=== PATIENT | female | born 1990 | race Caucasian/White ===

== ENCOUNTER 2017-12-05 20:02 | Emergency (ER) | payer MEDICAID ==
--- NOTE | 2017-12-05 20:45 | EDPHY ---
H & P Stated Complaint: heavy vag bleed Time Seen by Provider: 12/05/17 20:16 HPI/ROS: Chief Complaint: Vaginal bleeding HPI: 27-year-old is presenting with heavy vaginal bleeding for the last 2 days. Patient states her last normal menstrual cycle was about a month ago but she does not keep track. Does not believe she is because her had a vasectomy about 6 weeks ago. Has had increasing abnormal vaginal bleeding over the course today. Patient states she is soaking a heavy tampon with a pad every 45 min to an hour over the course of the day. No lightheadedness or fainting. Does not have a history of heavy vaginal bleeding in the past. Is complaining of some left lower pelvic pain. Does not believe she is . This does not feel like her normal menses. ROS: 10 point Review of Systems is negative except as noted in the HPI. PMH: Denies Social History: [No] smoking, [no] alcohol, [ no recreational drug use] Family History: [non-contributory] Physical Exam: Gen: [Awake], [Alert], [No Distress] HEENT: [ ] [Nose: no rhinorrhea] Eyes: [PERRLA], [EOMI] Mouth: [Moist mucosa] [] Neck: [Supple], [no JVD] Chest: [nontender], [lungs clear to auscultation] Heart: [S1, S2 normal], [no murmur] Abd: [Soft], moderate left adnexal tenderness with guarding Back: [no CVA tenderness], [no] midline tenderness [] Ext: [no] edema, [non-tender] Skin: [no rash] Neuro: [CN II-XII intact], [Sensation grossly intact], Strength [5]/5 in [ bilateral] [upper and] [lower] extremities - Personal History LMP (Females 10-55): Now Current Tetanus/Diphtheria Vaccine: Unsure Current Tetanus Diphtheria and Acellular Pertussis (TDAP): Unsure - Medical/Surgical History Hx Asthma: No Hx Chronic Respiratory Disease: No Hx Diabetes: No Hx Cardiac Disease: No Hx Renal Disease: No Hx Cirrhosis: No Hx Alcoholism: No Hx HIV/AIDS: No Hx Splenectomy or Spleen Trauma: No Other PMH: c secton. - Social History Smoking Status: Never smoked Constitutional: Initial Vital Signs Temperature (C) 37 C 12/05/17 20:04 Heart Rate 93 12/05/17 20:04 Respiratory Rate 18 12/05/17 20:04 Blood Pressure 144/94 H 12/05/17 20:04 O2 Sat (%) 99 12/05/17 20:04 O2 Delivery Mode Room Air Allergies/Adverse Reactions: No Known Allergies Allergy (Unverified 12/05/17 20:04) Home Medications: Medication Instructions Recorded medroxyPROGESTERone [Provera 10 mg 10 mg PO DAILY #9 tab 12/05/17 (*)] Medical Decision Making ED Course/Re-evaluation: The patient's blood counts are normal. She is not . Symptoms consistent with dysfunctional uterine bleeding. She is normal sinus. Will start her on Provera. Have her follow up with OBGYN as an outpatient. - Data Points Laboratory Results: Laboratory Results 12/05/17 20:45 12/05/17 20:45 12/05/17 12/05/17 12/05/17 20:45 20:45 20:45 WBC 6.73 10^3/uL 10^3/uL (3.80-9.50) RBC 5.06 10^6/uL 10^6/uL (4.18-5.33) Hgb 12.1 g/dL L g/dL (12.6-16.3) Hct 37.5 % L % (38.0-47.0) MCV 74.1 fL L fL (81.5-99.8) MCH 23.9 pg L pg (27.9-34.1) MCHC 32.3 g/dL L g/dL (32.4-36.7) RDW 17.7 % H % (11.5-15.2) Plt Count 229 10^3/uL 10^3/uL (150-400) MPV 12.0 fL H fL (8.7-11.7) Neut % (Auto) 47.1 % % (39.3-74.2) Lymph % (Auto) 40.4 % % (15.0-45.0) [place] % (Auto) 9.1 % % (4.5-13.0) Eos % (Auto) 2.4 % % (0.6-7.6) Baso % (Auto) 0.9 % % (0.3-1.7) Nucleat RBC Rel Count 0.0 % % (0.0-0.2) Absolute Neuts (auto) 3.17 10^3/uL 10^3/uL (1.70-6.50) Absolute Lymphs (auto) 2.72 10^3/uL 10^3/uL (1.00-3.00) Absolute Monos (auto) 0.61 10^3/uL 10^3/uL (0.30-0.80) Absolute Eos (auto) 0.16 10^3/uL 10^3/uL (0.03-0.40) Absolute Basos (auto) 0.06 10^3/uL 10^3/uL (0.02-0.10) Absolute Nucleated RBC 0.00 10^3/uL 10^3/uL (0-0.01) Immature Gran % 0.1 % % (0.0-1.1) Immature Gran # 0.01 10^3/uL 10^3/uL (0.00-0.10) Sodium 142 mEq/L mEq/L (135-145) Potassium 3.9 mEq/L mEq/L (3.3-5.0) Chloride 105 mEq/L mEq/L (97-110) Carbon Dioxide 25 mEq/l mEq/l (22-31) Anion Gap 12 mEq/L mEq/L (8-16) BUN 12 mg/dL mg/dL (7-23) Creatinine 0.8 mg/dL mg/dL (0.6-1.0) Estimated GFR > 60 Glucose 69 mg/dL L mg/dL (70-100) Calcium 9.7 mg/dL mg/dL (8.5-10.4) Beta HCG, Qual NEGATIVE Departure - Departure Disposition: Home, Routine, Self-Care Clinical Impression: Abnormal vaginal bleeding Condition: Good Instructions: Dysfunctional Uterine Bleeding (ED) Additional Instructions: Take her full 10 day course of Provera. Follow up with OBGYN in 1-2 weeks for further evaluation. Return to the emergency department for increasing pain, lightheadedness, fainting, persistent heavy bleeding, or any other concerns. Referrals: NONE *PRIMARY CARE P,. [Primary Care Provider] - As per Instructions Rick Helm MD [Medical Doctor] - As per Instructions Prescriptions: medroxyPROGESTERone [Provera 10 mg (*)] 10 mg PO DAILY #9 tab
[2017-12-05 21:02] LABS: PLATELET COUNT 229 10^3/uL (150-400)
[2017-12-05] MEDS ORDERED: medroxyPROGESTERone 10 MG TAB PO ONE (22:05)
[2017-12-05 22:32] VITALS: BP 122/82
== END 2017-12-05 22:32 | disposition home or self-care (01) ==
DX: N93.9 Abnormal uterine and vaginal bleeding, unspecified (principal)